=== PATIENT | female | born 1995 | race Caucasian/White ===

== ENCOUNTER → 2024-01-17 10:20 | Outpatient (CLI) | payer BC, SELFPAY ==
[2024-01-17 11:39] LABS: Influenza A - CEPHEID Flu A NEGATIVE (NEGATIVE); Influenza B - CEPHEID Flu B NEGATIVE (NEGATIVE); Respiratory Syncytial Virus Negative (Negative)
[2024-01-17 12:36] LABS: COVID-19 CEPHEID 4-PLEX PCR Negative (Negative)
== END ==
PROVIDERS: PCP Family Medicine; Visit Provider Nurse Practitioner Family
DX: R05.8 Other specified cough (principal)
CPT/HCPCS: 0241U

== ENCOUNTER → 2024-01-17 10:38 | Outpatient (CLI) | payer BC, SELFPAY ==
--- NOTE | 2024-01-17 10:40 | DI.RAD.S_ITS ---
PROCEDURE: XR CHEST 2V INDICATIONS: Cough TECHNIQUE: 2 views of the chest were acquired. COMPARISON: None. FINDINGS: Surgical changes and devices: None. Lungs and pleura: No dense airspace disease or pleural effusions. Mediastinum: Normal heart size Bones and chest wall: Unremarkable IMPRESSION: No acute radiographic abnormality. Dictated by: Kavin Aviles M.D. on 01/17/2024 at 16:35 Approved by: Kavin Aviles M.D. on 01/17/2024 at 16:36
== END ==
LOC: RAD 10:39
PROVIDERS: PCP Family Medicine; Referring Provider Nurse Practitioner Family; Visit Provider Nurse Practitioner Family
DX: R05.8 Other specified cough (principal)
CPT/HCPCS: 0241U; 71046